=== PATIENT | male | born 1955 | race Caucasian/White ===

== ENCOUNTER 2016-10-06 10:51 | Emergency (ER) | payer OTHER ==
[~2016-10-06] VITALS: Ht 177.8 cm; Wt 90.7 kg
--- NOTE | 2016-10-06 11:05 | ED Cardiac General ---
History of Present Illness General Stated Complaint: LOW HEART RATE Source: patient Exam Limitations: no limitations History of Present Illness Time seen by provider: 11:03 Initial Comments Sent to ER from [facility] with reports of a low heart rate of 44. Patient had a scheduled appointment with Dr. Yeh (he believed) at the clinic today. He showed up to the clinic by Dr. Craig was not there and his appointment is actually next week sometime. He was evaluated at the clinic and found to have a heart rate of 44 without other symptoms so they referred him to the emergency room. Patient states he's had a heart attack 5 times previously and has had atrial fibrillation with electrical cardioversion 4 times in the past. His appointment today was for some chest pain that is described as a charley horse that he had on the left side of his chest last week not associated with activity. He has not had any chest pain for the past few days. He has had some progressive dyspnea over the past few weeks and states that he can only do a little bit of yardwork before having to sit down and rest. Patient himself voices no immediate complaints and is not entirely clear why he was sent here to the emergency room. 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 ASA po BONE DRIER OPERATOR: No Associated Systoms: Chest Pain (1 week ago), No Diaphoresis, No Fever/Chills, No Nausea/Vomiting, Shortness of Air, No Syncope, No Weakness Review of Systems Constitutional: see HPI EENTM: No Symptoms Reported Respiratory: See HPI, Denies Orthopnea, SOA With Exertion Cardiovascular: See HPI, Chest Pain (1 week ago) Gastrointestinal: See HPI Genitourinary: No Symptoms Reported Musculoskeletal: no symptoms reported Skin: no symptoms reported Psychiatric/Neurological: No Symptoms Reported Endocrine: No Symptoms Reported Past Vfesduk-Sdksgd-Lzecxt Hx Patient Social History Recent Foreign Travel: No Contact w/Someone Who Travel: No Physical Exam Vital Signs Vital Sign - Last 12Hours 10/06/16 10:51 Temp 97.5 Pulse 55 Resp 16 B/P (MAP) 168/89 Pulse Ox 98 O2 Delivery Room Air Capillary Refill : General Appearance: No Apparent Distress, WD/WN HEENT: PERRL/EOMI, TMs Normal Neck: Full Range of Motion, Normal Inspection Respiratory: No Accessory Muscle Use, No Respiratory Distress Cardiovascular: Regular Rate, Rhythm, Normal Peripheral Pulses Gastrointestinal: Normal Bowel Sounds, Non Tender, Soft Extremity: Normal Capillary Refill, Normal Inspection Neurologic/Psychiatric: Alert, Oriented x3, No Motor/Sensory Deficits Skin: Normal Color, Warm/Dry Progress/Results/Core Measures Results/Orders Lab Results Laboratory Tests Test 10/06/16 11:15 Range/Units White Blood Count 6.5 4.3-11.0 10^3/uL Red Blood Count 4.72 4.35-5.85 10^6/uL Hemoglobin 14.1 13.3-17.7 G/DL Hematocrit 42 40-54 % Mean Corpuscular Volume 89 80-99 FL Mean Corpuscular Hemoglobin 30 25-34 PG Mean Corpuscular Hemoglobin Concent 34 32-36 G/DL Red Cell Distribution Width 13.5 10.0-14.5 % Platelet Count 327 130-400 10^3/uL Mean Platelet Volume 10.7 H 7.4-10.4 FL Neutrophils (%) (Auto) 56 42-75 % Lymphocytes (%) (Auto) 31 12-44 % Monocytes (%) (Auto) 12 0-12 % Eosinophils (%) (Auto) 1 0-10 % Basophils (%) (Auto) 1 0-10 % Neutrophils # (Auto) 3.6 1.8-7.8 X 10^3 Lymphocytes # (Auto) 2.0 1.0-4.0 X 10^3 Monocytes # (Auto) 0.8 0.0-1.0 X 10^3 Eosinophils # (Auto) 0.1 0.0-0.3 10^3/uL Basophils # (Auto) 0.0 0.0-0.1 10^3/uL Sodium Level 137 135-145 MMOL/L Potassium Level 4.9 3.6-5.0 MMOL/L Chloride Level 105 98-107 MMOL/L Carbon Dioxide Level 23 21-32 MMOL/L Anion Gap 9 5-14 MMOL/L Blood Urea Nitrogen 16 7-18 MG/DL Creatinine 0.85 0.60-1.30 MG/DL Estimat Glomerular Filtration Rate > 60 BUN/Creatinine Ratio 19 Glucose Level 95 70-105 MG/DL Calcium Level 9.4 8.5-10.1 MG/DL Total Bilirubin 0.3 0.1-1.0 MG/DL Aspartate Amino Transf (AST/SGOT) 34 5-34 U/L Alanine Aminotransferase (ALT/SGPT) 56 H 0-55 U/L Alkaline Phosphatase 94 40-136 U/L Troponin I < 0.30 <0.30 NG/ML B-Type Natriuretic Peptide 27.4 <100.0 PG/ML Total Protein 7.0 6.4-8.2 G/DL Albumin 3.8 3.2-4.5 G/DL My Orders Orders - PARKER SPANGLER APRN Cbc With Automated Diff (10/06/16 11:02) Comprehensive Metabolic Panel (10/06/16 11:02) BNP (10/06/16 11:02) Chest 1 View, Ap/Pa Only (10/06/16 11:02) Ekg Tracing (10/06/16 11:02) Troponin I (10/06/16 11:02) Vital Signs/I&O Vital Sign - Last 12Hours 10/06/16 10:51 Temp 97.5 Pulse 55 Resp 16 B/P (MAP) 168/89 Pulse Ox 98 O2 Delivery Room Air Diagnostic Imaging Diagonstic Imaging: Xray Plain Films/CT/US/NM/MRI: chest Comments NAME: NARESH [facility]MICHAEL [facility] REC#: [id number] PT STATUS: REG ER : 1955 PHYSICIAN: PARKER SPANGLER APRN ADMIT DATE: 10/06/16/ER Draft Date of Exam:10/06/16 CHEST 1 VIEW, AP/PA ONLY Portable erect AP chest at 1133h. INDICATION: Low heart rate There are no prior studies available for comparison. This exam is less than optimal as the patient is rotated. The heart size is within normal limits. There is a small area of increased density near the apex of the heart. This may be secondary to mild scar formation or to an epicardial fat-pad. It would be less likely that this is related to pneumonia/atelectasis or to a mass. If previous studies are available they would be helpful comparison. There is no evidence for pneumonia or for a pleural effusion. The mediastinum is not widened. The osseous structures are intact. IMPRESSION: 1. There is no evidence for acute cardiopulmonary abnormality. 2. The small area of increased density near the apex of the heart is most likely due to mild scar formation and/or epicardial fat pad. If previous exams are available they would be helpful for comparison. Dictated on workstation # [id number] Dict: 10/06/16 1137 Trans: 10/06/16 1148 [facility] [id number] Interpreted by: ENID FAIRBANKS MD Electronically signed by: Departure Impression Impression: Primary Impression: Dyspnea on exertion Additional Impression: History of chest pain Disposition: HOME, SELF-CARE Condition: Stable Departure-Patient Inst. Decision time for Depature: 12:31 Referrals: [facility] (PCP/Family) Primary Care Physician ANH YEH MD [facility] CCDS Patient Instructions: NO INSTRUCTIONS GIVEN Add. Discharge Instructions: 1. Follow-up with Dr. Yeh next week as scheduled 2. Return to ER for any concerns Copy Copies To 1: ANH YEH MD [facility] CCDS PARKER SPANGLER APRN October 06, 2016 11:05
[2016-10-06 11:26] LABS: BASOPHILS % (AUTO) 1 % (0-10); EOSINOPHILS # (AUTO) 0.1 10^3/uL (0.0-0.3); EOSINOPHILS % (AUTO) 1 % (0-10); LYMPHOCYTES % (AUTO) 31 % (12-44); MEAN CORPUSCULAR HEMOGLOBIN 30 PG (25-34); MEAN CORPUSCULAR HGB CONC 34 G/DL (32-36); MEAN CORPUSCULAR VOLUME 89 FL (80-99); MEAN PLATELET VOLUME 10.7 FL (7.4-10.4); MONOCYTES # (AUTO) 0.8 X 10^3 (0.0-1.0); MONOCYTES % (AUTO) 12 % (0-12); NEUTROPHILS # (AUTO) 3.6 X 10^3 (1.8-7.8); NEUTROPHILS % (AUTO) 56 % (42-75); PLATELET COUNT 327 10^3/uL (130-400); RED BLOOD COUNT 4.72 10^6/uL (4.35-5.85); RED CELL DISTRIBUTION WIDTH 13.5 % (10.0-14.5); WHITE BLOOD COUNT 6.5 10^3/uL (4.3-11.0)
--- NOTE | 2016-10-06 11:49 | Diagnostic Imaging Report ---
Portable erect AP chest at 1133h. INDICATION: Low heart rate There are no prior studies available for comparison. This exam is less than optimal as the patient is rotated. The heart size is within normal limits. There is a small area of increased density near the apex of the heart. This may be secondary to mild scar formation or to an epicardial fat-pad. It would be much less likely that this is related to pneumonia/atelectasis or to a mass. If previous studies are available they would be helpful comparison. There is no evidence for pneumonia or for a pleural effusion. The mediastinum is not widened. The osseous structures are intact. IMPRESSION: 1. There is no evidence for acute cardiopulmonary abnormality. 2. The small area of increased density near the apex of the heart is most likely due to mild scar formation and/or epicardial fat pad. If previous exams are available they would be helpful for comparison. Dictated by: Dictated on workstation # [id number]
[2016-10-06 11:51] LABS: ALANINE AMINOTRANSFERASE 56 U/L (0-55); ALBUMIN 3.8 G/DL (3.2-4.5); ANION GAP 9 MMOL/L (5-14); ASPARTATE AMINO TRANSFERASE 34 U/L (5-34); BILIRUBIN,TOTAL 0.3 MG/DL (0.1-1.0); BLOOD UREA NITROGEN 16 MG/DL (7-18); BUN/CREATININE RATIO 19; CALCIUM 9.4 MG/DL (8.5-10.1); CARBON DIOXIDE 23 MMOL/L (21-32); CHLORIDE 105 MMOL/L (98-107); CREATININE SERUM 0.85 MG/DL (0.60-1.30); GFR ESTIMATED > 60; GLUCOSE 95 MG/DL (70-105); POTASSIUM 4.9 MMOL/L (3.6-5.0); SODIUM 137 MMOL/L (135-145)
[2016-10-06 11:58] LABS: TROPONIN I < 0.30 NG/ML (<0.30)
[2016-10-06 12:45] VITALS: BP 144/64
== END 2016-10-06 12:45 | disposition home or self-care (01) ==
LOC: EDUNIT# 10:51 → ER 10:55
DX: R06.09 Other forms of dyspnea (principal); I48.91 Unspecified atrial fibrillation; I25.2 Old myocardial infarction
CPT/HCPCS: 36415; 71010; 80053; 83880; 84484; 85025; 93005

== ENCOUNTER → 2017-01-09 | Outpatient (CLI) | payer OTHER ==
[~2017-01-09] MED LIST: CATHETER FLUSH 10 ML SYR IV PRN; REGADENOSON 0.4 MG/5 ML SYR (LEXISCAN) IV ONE
[2017-01-09 09:35] VITALS: BP 165/83
[2017-01-09 09:42] VITALS: BP 178/92
--- NOTE | 2017-01-10 07:09 | STRESS TEST ---
DATE OF SERVICE: 01/09/2017 PROCEDURE: Resting and post-regadenoson technetium-99M tetrofosmin SPECT CT imaging. CLINICAL DIAGNOSIS: Chest discomfort. ORDERING PHYSICIAN: Carolyne Avila APRN PRIMARY PHYSICIAN: [facility]. Baseline images were carried out after injection of 10.77 mCi of technetium-99M tetrofosmin and this was followed by 0.4 mg of regadenoson and 31.5 mCi of technetium-99M tetrofosmin for stress imaging. The electrocardiogram showed sinus rhythm with incomplete right bundle branch block at baseline and it did not change significantly with the regadenoson infusion. Isolated premature ventricular contractions were seen. He tolerated the procedure well. Review of images at rest and following stress indicate a fixed inferoapical perfusion defect consistent with a prior myocardial infarction without ischemia. Gated images show inferoapical hypokinesis. Left ventricular ejection fraction is calculated to be 50%. Left ventricular end diastolic volume is 129 mL. TID is absent (1.03). CONCLUSIONS: 1. This study suggests a small inferoapical infarction without ischemia. 2. Inferoapical hypokinesis. 3. Left ventricular ejection fraction is calculated to be 50%. 4. Mild cardiomegaly. Job ID: [id number] DocumentID: [id number] Dictated Date: 01/09/2017 15:21:43 [place] Sander Date: 01/10/2017 04:40:31 Dictated By: ANH KAMINSKI MD, MA, FACP, FACC,
== END ==
LOC: CARD 07:24
PROVIDERS: ATTEND Nurse Practitioner Family
DX: R07.9 Chest pain, unspecified (principal)
CPT/HCPCS: 78452; 93017

== ENCOUNTER 2017-01-23 06:56 | Day surgery (SDC) | payer OTHER ==
[2017-01-23] VITALS (10 sets, daily range): BP systolic 130–165; BP diastolic 77–93
[~2017-01-23] VITALS: Ht 172.7 cm; Wt 85.7 kg
[~2017-01-23 06:56] MED LIST changes: -CATHETER FLUSH 10 ML SYR IV PRN; +HEParin (CATH LAB) 2,000 ML IV ONE; +NS IV 1000 ML 1,000 ML ONE; -REGADENOSON 0.4 MG/5 ML SYR (LEXISCAN) IV ONE
[2017-01-23 07:21] LABS: MEAN PLATELET VOLUME 10.7 FL (7.4-10.4); RED CELL DISTRIBUTION WIDTH 14.3 % (10.0-14.5)
[2017-01-23] MEDS ORDERED: NS IV 1000 ML 1,000 ML IV SCH ×2 (07:30→11:38)
[2017-01-23 07:33] LABS: INR 0.9 (0.8-1.4); PROTHROMBIN TIME PATIENT 12.5 SEC (12.2-14.7)
[2017-01-23 07:46] LABS: ALANINE AMINOTRANSFERASE 46 U/L (0-55); ANION GAP 10 MMOL/L (5-14); ASPARTATE AMINO TRANSFERASE 32 U/L (5-34); BILIRUBIN,TOTAL 0.4 MG/DL (0.1-1.0); BLOOD UREA NITROGEN 21 MG/DL (7-18); BUN/CREATININE RATIO 18; CALCIUM 9.3 MG/DL (8.5-10.1); CARBON DIOXIDE 25 MMOL/L (21-32); CHLORIDE 105 MMOL/L (98-107); CHOLESTEROL 232 MG/DL (< 200); CREATININE SERUM 1.18 MG/DL (0.60-1.30); DIRECT LDL 132 MG/DL (1-129); GFR ESTIMATED > 60; GLUCOSE 74 MG/DL (70-105); SODIUM 140 MMOL/L (135-145); TOTAL PROTEIN 7.4 GM/DL (6.4-8.2); TRIGLYCERIDES 166 MG/DL (<150); VLDL CHOLESTEROL 33 MG/DL (5-40)
[2017-01-23] MEDS ORDERED: WARF-47 PO ×2 (08:08)
[2017-01-23] MEDS ORDERED: ASPI-983 PO (08:08)
[2017-01-23] MEDS ORDERED: AMIO200T2 PO (08:10)
[2017-01-23] MEDS ORDERED: PARO40TA PO (08:10)
[2017-01-23] MEDS ORDERED: PRAV40TA2 PO (08:10)
[2017-01-23] MEDS ORDERED: LISI-556 PO (08:10)
--- OUTSIDE RECORDS SUMMARY | 2017-01-23 10:20 | XMS REPORT | Continuity of Care Document ---
Author Author [facility] Address Unknown Phone Unavailable Allergies Medications Problems Procedures Results Encounters ACCT No. Visit Date/Time Discharge Status Pt. Type Provider Facility Loc./Unit Complaint [id number] 12/31/2015 09:18:28 12/31/2015 23: 59:59 CLS Outpatient Selene Hardy [id number] 09/24/2013 16:10:24 09/24/2013 23: 59:59 CLS Outpatient Selene Hardy [id number] 09/02/2013 09:25:05 09/02/2013 23: 59:59 CLS Outpatient Selene Hardy [id number] 08/15/2013 09:37:29 08/15/2013 23: 59:59 CLS Outpatient Rika Winn
[2017-01-23] MEDS ORDERED: fentaNYL INJECTION 100 MCG/2 ML AMP ONE (10:30)
[2017-01-23] MEDS ORDERED: diphenhydrAMINE 50 MG/ML INJ (BENADRYL) ONE (10:30)
[2017-01-23] MEDS ORDERED: MIDAZOLAM 5 MG/5 ML (VERSED) VIAL ONE (10:30)
--- NOTE | 2017-01-23 10:50 | Cardiac Procedure Note-CS/ASA ---
Pre-Procedure Note Pre-Op Procedure Note H&P Reviewed The H&P was reviewed, patient examined and no changes noted. Date H&P Reviewed: Jan 23, 2017 Time H&P Reviewed: 10:50 Conscious Sedation Pre-Proced Time Reviewed: 10:50 ASA Class: 3 Airway Mallampati Classification: (tribal appropriate class) I. II. III, IV Lungs Heart ASA score ASA 1: a normal healthy patient ASA 2: a patient with a mild systemic disease (mid diabetes, controlled hypertension, obesity ASA 3: a patient with a severe systemic disease that limits activity (angina , COPD, prior Myocardial infarction) ASA 4: a patient with an incapacitating disease that is a constant threat to life (CHF, renal failure) ASA 5: a moribund patient not expected to survive 24 hrs. (ruptured aneurysm) ASA 6: a declared brain patient whose organs are being harvested. For emergent operations, add the letter E after the classification Grade 2 Sedation Plan: Analgesia, Amnesia, Plan communicated to team members, Discussed options with patient/fam, Discussed risks with patient/fam Note The patient is an appropriate candidate to undergo the planned procedure, sedation, and anesthesia. The patient immediately re-assessed prior to indication. ANH KAMINSKI MD FACP FAC CCDS Jan 23, 2017 10:50
--- NOTE | 2017-01-23 11:40 | Discharge Inst-Post CATH ---
Discharge Inst-CATH Post Cardiac Cath D/C Inst Follow Up/Plan F/u with Dr Yeh in 2-3 weeks CARDIAC CATH DISCHARGE INSTRUCTIONS *Hold Metformin for 48 hours post heart cath. ACTIVITY * Go Home directly and rest. * Limit activity of the leg (or wrist if it was used) for 7 days including aerobics, swimming, jogging, bicycling, etc. * Restrict stair-climbing for 7 days if possible, if not, climb up with your non -cath leg, then bring together on the same step. * Avoid lifting, pushing, pulling or excessive movement of the affected extremity for 7 days. * Customary sexual activity may be resumed after 2 days-use caution not to use a position that strains or causes pain to the affected extremity. * No driving for 24 hours. * NO SMOKING. * Avoid straining for bowel movements for 7 days. * Gentle walking on level ground is allowed. * Returning to work will depend on the type of procedure and the results. Your doctor will discuss this with you. CALL YOUR DOCTOR FOR ANY OF THE FOLLOWING: *If bleeding from the puncture site occurs- Apply gentle pressure to site with clean cloth and call your doctor or EMS. * If a knot or lump forms under the skin, increases in size, or causes pain. * If bruising appears to be worsening or moving further down your leg instead of disappearing. * Temperature above 101 F. CARE OF YOUR GROIN INCISION; * Bruising or purple discoloration of the skin near the puncture site is common. * You may shower only, no bathtub bathing for 5 days. Be careful to avoid slipping as your leg may feel stiff. * If a closure device was used on your femoral artery, please see the attached guide regarding care of the device and your leg. * REMOVE the dressing from your groin the next day after your procedure in the shower. CARE OF YOUR WRIST INCISION; * Bruising or purple discoloration of the skin near the puncture site is common. * You may shower. * DO NOT submerge wrist. * Remove dressing in 24 hours. ANH YEH MD [facility] CCDS Jan 23, 2017 11:40
--- NOTE | 2017-01-23 11:41 | Discharge Inst-Cardiology ---
Discharge Inst-Cardiac Discharge Medications Continued Medications: Amiodarone HCl (Amiodarone HCl) 200 Mg Tablet 400 MG PO DAILY, TAB TAKES 2 (200MG) TABLETS Aspirin (Aspirin EC) 81 Mg Tablet.dr 81 MG PO DAILY, TAB Lisinopril (Lisinopril) 5 Mg Tablet 2.5 MG PO DAILY, TAB TAKES 1/2 (5MG) TABLET Paroxetine HCl (Paxil) 40 Mg Tablet 40 MG PO DAILY, TAB Pravastatin Sodium (Pravastatin Sodium) 40 Mg Tablet 40 MG PO DAILY, TAB Warfarin Sodium (Warfarin Sodium) 2 Mg Tablet 3 MG PO SuSa, TAB TAKES 1 & 1/2 (2MG) TABLETS Warfarin Sodium (Warfarin Sodium) 2 Mg Tablet 2 MG PO MoTuWeThFr, TAB Orders-Post D/C & Referrals Pneu Vac Indicated: Yes ANH KAMINSKI MD FACP FAC CCDS Jan 23, 2017 11:41
[2017-01-23] MEDS ORDERED: PATIENT MAY USE OWN MEDS, ALL PO SCH (11:45)
--- NOTE | 2017-01-23 12:00 | CARDIAC CATHETERIZATION ---
DATE OF SERVICE: 01/23/2017 Joseph Wang is a 61-year-old gentleman who is known to have coronary artery disease and who has had stenting of the right coronary artery with Dr. Gupta at [facility] in 2014. He has been experiencing recurrent chest discomfort and increasing shortness of breath. Cardiac catheterization was carried out after having obtained an informed consent. PROCEDURE: He was brought to the cardiac catheterization laboratory in a fasting state. Right groin was prepared and draped in the usual sterile fashion. Lidocaine 1% local anesthesia. Modified Seldinger technique was used to advance a 5-Polish sheath in the right femoral artery. Angiography of the right femoral artery was carried out through sheath - JL 3.5 catheter was left coronary angiography, 5-Polish JR4 catheter, right coronary angiography, 5-Polish pigtail catheter was used for left heart catheterization, left ventricular angiography. Pigtail catheter was pulled back to the aortic arch and aortic arch angiography was performed. The catheter was then removed. A Mynx was used to achieve hemostasis. Overall, he tolerated the procedure well. HEMODYNAMICS: Left ventricular end-diastolic pressure following coronary angiography was 9 mmHg. There was no significant pressure gradient on pullback across the aortic valve. Ascending aortic pressure was 130/67 with a mean of 98 mmHg. CORONARY ANGIOGRAPHY: Coronary calcification is seen. Left main coronary artery does not exhibit significant disease. Left anterior descending and left circumflex arteries appear to have mild plaque. The right coronary artery is dominant. It has a widely patent stent in the mid to distal portion of the posterior descending branch. There is 30 to 40% stenosis prior to the stent. LEFT VENTRICULAR ANGIOGRAPHY: Left ventricular angiography was carried out in the ROSA projection. There is inferoapical akinesis with left ventricular ejection fraction approximately 45%. There does not appear to be significant mitral regurgitation. AORTIC ARCH ANGIOGRAPHY: Aortic arch angiography was mainly focused on the descending thoracic aorta. The left subclavian artery is visualized and does not have significant disease, but the other neck arteries are not visualized on this view. The descending thoracic aorta and the abdominal aorta do not exhibit any significant aneurysm or dissection. CONCLUSIONS: 1. Coronary artery disease, relatively mild, as described above. There is a patent stent in the mid portion of the posterior descending branch of the right coronary artery which is reported to have been placed in late 2014. 2. Normal left ventricular end-diastolic pressure. 3. Impaired left ventricular systolic function with inferoapical akinesis with left ventricular ejection fraction of 45%. 4. No significant mitral regurgitation. DISCUSSION AND RECOMMENDATIONS: Based on the results of the study, it appears appropriate to continue a conservative approach. Risk factor modification was reviewed. Outpatient followup is advised. Job ID: [id number] DocumentID: [id number] Dictated Date: 01/23/2017 11:32:20 Dietary Aid Date: 01/23/2017 11:59:48 Dictated By: ANH KAMINSKI MD, MA, FACP, FACC,
== END 2017-01-23 14:30 | disposition home or self-care (01) ==
LOC: CATH 06:56 → SURG 11:40 → CATH 14:30
PROVIDERS: ATTEND Internal Medicine Cardiovascular Disease
DX: R07.89 Other chest pain (principal); R06.02 Shortness of breath; I25.10 Atherosclerotic heart disease of native coronary artery without angina pectoris; I48.0 Paroxysmal atrial fibrillation; I10 Essential (primary) hypertension; Z95.5 Presence of coronary angioplasty implant and graft; Z79.01 Long term (current) use of anticoagulants; Z79.899 Other long term (current) drug therapy
CPT/HCPCS: 36221; 36415; 80053; 80061; 85027; 85610; 85730; 87081; 93005; 93458